=== PATIENT | male | born 1945 | race Caucasian/White ===

== ENCOUNTER 2021-08-19 10:59 | Inpatient (IN) | payer MEDICARE, MEDICAID ==
[~2021-08-19] VITALS: Ht 165.1 cm; Wt 64.9 kg
[~2021-08-19 10:59] MED LIST: LISI20TA31 PO; METF-415 PO
[2021-08-19] MEDS ORDERED: DILTIAZEM HCL 5MG/ML 5ML VIAL IV ONE (13:45)
[2021-08-19] MEDS ORDERED: DILTIAZEM HCL 5MG/ML 10ML VIAL IV NR (14:15)
[2021-08-19] MEDS ORDERED: DILTIAZEM HCL 5MG/ML 25ML VIAL IV NR (14:15)
[2021-08-19 14:19] LABS: BASOPHILS % 0.9 % (0.0-2.0); EOSINOPHILS % 0.2 % (0.0-5.0); HEMATOCRIT. 42.9 % (42.0-52.0); HEMOGLOBIN. 14.5 g/dL (14.0-18.0); LYMPHOCYTES % 11.7 % (20.0-50.0); MEAN CORPUSCULAR VOLUME 94.3 fL (80.0-94.0); MEAN PLATELET VOLUME 10.6 fl (7.4-10.4); MONOCYTES % 8.3 % (2.0-8.0); NEUTROPHILS % 78.9 % (40.0-76.0); PLATELET 164 x1000/uL (130-400); RED BLOOD CELL COUNT 4.54 mill/uL (4.7-6.1)
[2021-08-19 14:27] LABS: CHLORIDE 110 mEq/L (98-107)
[2021-08-19] MEDS ORDERED: AMIODARONE HCL 150 MG in DEXT 5% WATER 100 ML IV NR (14:30)
[2021-08-19] MEDS ORDERED: AMIODARONE HCL 900 MG in DEXT 5% WATER 482 ML IV SCH (14:30)
[2021-08-19] MEDS ORDERED: DOCUSATE SODIUM 100MG CAPSULE PO PRN (15:15)
[2021-08-19] MEDS ORDERED: MAGNESIUM/ALUMINUM HYDROXIDE/SIMETHICONE 30ML UDC PO PRN (15:15)
[2021-08-19] MEDS ORDERED: GUAIFENESIN 200MG/10ML SUGAR FREE UDC PO PRN (15:15)
[2021-08-19] MEDS ORDERED: MORPHINE SULFATE 2 MG/ML CPJ (NOT FOR IM USE) IV PRN (15:15)
[2021-08-19] MEDS ORDERED: ONDANSETRON HCL 4MG/2ML INJ IV PRN (15:15)
[2021-08-19] MEDS ORDERED: HYDROCODONE/ACETAMINOPHEN 5/325MG TABLET PO PRN (15:15)
[2021-08-19] MEDS ORDERED: ACETAMINOPHEN 325MG TABLET PO PRN (15:15)
[2021-08-19] MEDS ORDERED: NALOXONE HCL 0.4MG/ML VIAL IV PRN (15:30)
[2021-08-19 15:49] LABS: PROTHROMBIN TIME 42.9 sec (9.6-11.0)
[2021-08-19 15:51] LABS: INR 4.5
[2021-08-19] MEDS: AMIODARONE HCL 900 MG in DEXT 5% WATER 482 ML IV SCH (15:59)
[2021-08-19 20:08] VITALS: BP_SYST 125; BP_SYST 144; BP_DIAS 83; BP_DIAS 94
[2021-08-19] MEDS ORDERED: DEXTROSE 50% WATER 50ML SYRINGE IV PRN (21:15)
[2021-08-19] MEDS: BLOOD SUGAR DIAGNOSTIC STRIP TEST SCH (21:38)
[2021-08-19 21:46] VITALS: BP 152/95
[2021-08-19] MEDS: CARVEDILOL 3.125 MG TABLET PO SCH (21:53)
[2021-08-19] MEDS ORDERED: LORAZEPAM 2MG/ML CPJ IV PRN (22:15)
[2021-08-19] MEDS: INSULIN LISPRO 100 UNITS/ML SUBCUT SCH (22:21)
[2021-08-20] VITALS (13 sets, daily range): BP systolic 101–137; BP diastolic 30–92
[2021-08-20 06:10] LABS: HEMATOCRIT. 43.8 % (42.0-52.0); HEMOGLOBIN. 14.7 g/dL (14.0-18.0); MEAN CORPUSCULAR HEMOGLOBIN 31.9 pg (28.0-32.0); MEAN CORPUSCULAR VOLUME 95.3 fL (80.0-94.0); MEAN PLATELET VOLUME 10.3 fl (7.4-10.4); PLATELET 180 x1000/uL (130-400); RED BLOOD CELL COUNT 4.59 mill/uL (4.7-6.1)
[2021-08-20] MEDS: BLOOD SUGAR DIAGNOSTIC STRIP TEST SCH ×4 (06:20→21:08)
[2021-08-20 06:43] LABS: PARTIAL THROMBOPLASTIN TIME 48.3 sec (23.4-31.0); PROTHROMBIN TIME 51.9 sec (9.6-11.0)
[2021-08-20 07:35] LABS: INR 5.5
[2021-08-20] MEDS: INSULIN LISPRO 100 UNITS/ML SUBCUT SCH ×4 (07:55→21:08)
[2021-08-20] MEDS ORDERED: ASPI-1497 PO (08:04)
[2021-08-20] MEDS ORDERED: ATOR20TA65 PO (08:06)
[2021-08-20] MEDS ORDERED: CARV6.2548 PO (08:08)
[2021-08-20] MEDS ORDERED: FERR325T6 PO (08:09)
[2021-08-20] MEDS ORDERED: WARF3TAB58 PO (08:10)
[2021-08-20] MEDS ORDERED: WARF4TAB71 PO (08:11)
[2021-08-20] MEDS: CARVEDILOL 3.125 MG TABLET PO SCH ×2 (08:42→21:00)
[2021-08-20] MEDS ORDERED: TETRACAINE/BENZOCAINE/BUTAMBEN 20 GM SPRAY MM ONE (14:34)
[2021-08-20] MEDS ORDERED: FENTANYL CITRATE/PF 50MCG/ML 2ML VIAL ONE (14:35)
[2021-08-20] MEDS ORDERED: MIDAZOLAM HCL 2 MG/2 ML VIAL ONE ×2 (14:35→15:02)
[2021-08-20] MEDS ORDERED: LIDOCAINE HCL 2% JELLY 5ML ONE (15:04)
[2021-08-20] MEDS ORDERED: ATROPINE SULFATE 1MG/10ML SYR IV PRN (15:30)
[2021-08-20] MEDS ORDERED: ONDANSETRON HCL 4MG/2ML INJ IV PRN (15:30)
[2021-08-20] MEDS ORDERED: ACETAMINOPHEN 325MG TABLET PO PRN (15:30)
[2021-08-20] MEDS: AMIODARONE HCL 900 MG in DEXT 5% WATER 482 ML IV SCH (16:38)
[2021-08-21] VITALS (7 sets, daily range): BP systolic 110–127; BP diastolic 70–91
[2021-08-21 05:33] LABS: BASOPHILS % 0.7 % (0.0-2.0); EOSINOPHILS % 0.2 % (0.0-5.0); HEMATOCRIT. 42.3 % (42.0-52.0); HEMOGLOBIN. 14.1 g/dL (14.0-18.0); LYMPHOCYTES % 13.7 % (20.0-50.0); MEAN CORPUSCULAR HEMOGLOBIN 31.9 pg (28.0-32.0); MEAN CORPUSCULAR VOLUME 95.5 fL (80.0-94.0); MEAN PLATELET VOLUME 10.2 fl (7.4-10.4); MONOCYTES % 10.6 % (2.0-8.0); NEUTROPHILS % 74.8 % (40.0-76.0); PLATELET 158 x1000/uL (130-400); RED BLOOD CELL COUNT 4.43 mill/uL (4.7-6.1); RED CELL DISTRIBUTION WIDTH 14.7 % (11.6-14.6)
[2021-08-21] MEDS: BLOOD SUGAR DIAGNOSTIC STRIP TEST SCH (06:54)
[2021-08-21 07:47] LABS: PROTHROMBIN TIME 43.3 sec (9.6-11.0)
[2021-08-21 07:49] LABS: INR 4.5
[2021-08-21] MEDS: CARVEDILOL 3.125 MG TABLET PO SCH (08:48)
[2021-08-21] MEDS: INSULIN LISPRO 100 UNITS/ML SUBCUT SCH (08:48)
[2021-08-21] MEDS ORDERED: AMIODARONE HCL 200 MG TABLET PO SCH (09:00)
[2021-08-21 12:01] LABS: PLATELET ESTIMATE NORMAL
== END 2021-08-21 11:00 | disposition home or self-care (01) | DRG 309 ==
LOC: ER 10:59 → 3WST 15:00 → EDBEDREQ 15:36 → EDBEDREQSVC 15:39 → ENRESERV 19:23 → 3WST 08-20 01:23 → 5EST 08-20 13:15
PROVIDERS: ADMIT Hospitalist; ATTEND Hospitalist
PROC: 5A2204Z Restoration of Cardiac Rhythm, Single (ICD-10-PCS; principal; 2021-08-20)
DX: I48.91 Unspecified atrial fibrillation (principal); D68.59 Other primary thrombophilia; I48.92 Unspecified atrial flutter; E11.9 Type 2 diabetes mellitus without complications; I25.10 Atherosclerotic heart disease of native coronary artery without angina pectoris; I44.7 Left bundle-branch block, unspecified; Z20.822 Contact with and (suspected) exposure to COVID-19; E78.5 Hyperlipidemia, unspecified; I11.9 Hypertensive heart disease without heart failure; Z79.01 Long term (current) use of anticoagulants; Z79.899 Other long term (current) drug therapy; Z95.2 Presence of prosthetic heart valve; Z79.82 Long term (current) use of aspirin; Z79.84 Long term (current) use of oral hypoglycemic drugs; I25.2 Old myocardial infarction
CPT/HCPCS: 36415; 71045; 80048; 80053; 82962; 83605; 83735; 83880; 84443; 84484; 85025; 87426; 92960; 93005; 93306; 93970; 99285; C9803; J0282; J1815; J2060; J2250; J3010; J3490; J7060

== ENCOUNTER 2021-08-28 11:49 | Inpatient (IN) | payer MEDICARE, MEDICAID ==
[2021-08-28] VITALS (27 sets, daily range): BP systolic 100–158; BP diastolic 54–98
[~2021-08-28] VITALS: Ht 172.7 cm; Wt 60.8 kg
[~2021-08-28 11:49] MED LIST changes: +ASPI-1497 PO; +ATOR20TA65 PO; +CARV6.2548 PO; +FERR325T6 PO
[2021-08-28] MEDS ORDERED: NICARDIPINE 100MCG/ML 10ML VIAL (CATH LAB) IV ONE (12:00)
[2021-08-28] MEDS ORDERED: NITROGLYCERIN 50MCG/ML 10ML VIAL (CATH LAB) IV ONE (12:00)
[2021-08-28] MEDS ORDERED: IODIXANOL 320MG/ML 100 ML BOTTLE IV ONE (12:44)
[2021-08-28] MEDS ORDERED: FENTANYL CITRATE/PF 50MCG/ML 2ML VIAL ONE (12:45)
[2021-08-28] MEDS ORDERED: HEPARIN 1000 UNITS/ML 10ML ONE (12:45)
[2021-08-28] MEDS ORDERED: MIDAZOLAM HCL 2 MG/2 ML VIAL ONE (12:45)
[2021-08-28] MEDS ORDERED: LIDOCAINE HCL 1% 10 MG/ML 10ML VIAL ONE ×2 (12:45→13:02)
[2021-08-28] MEDS ORDERED: ISOS30TA91 PO (13:02)
[2021-08-28] MEDS ORDERED: AMI2 PO (13:02)
[2021-08-28] MEDS ORDERED: LIDOCAINE HCL/PF 1% 10 MG/ML 5ML VIAL ONE (14:58)
[2021-08-28] MEDS ORDERED: FUROSEMIDE 20MG/2ML VIAL ONE (15:09)
[2021-08-28] MEDS ORDERED: FUROSEMIDE 40MG/4ML VIAL ONE ×2 (15:09→15:28)
[2021-08-28] MEDS ORDERED: MORPHINE SULFATE 2 MG/ML CPJ (NOT FOR IM USE) IV ONE ×2 (15:13→15:36)
[2021-08-28] MEDS ORDERED: HYDRALAZINE 20MG/ML VIAL ONE (15:19)
[2021-08-28] MEDS ORDERED: NITROGLYCERIN 50MG PREMIX 250 ML IV SCH (15:30)
[2021-08-28 19:42] LABS: INR 1.1; PROTHROMBIN TIME 12.1 sec (9.6-11.0)
[2021-08-28] MEDS: IPRATROPIUM/ALBUTEROL 0.5-3(2.5)MG/3ML NEB HHN SCH (20:01)
[2021-08-28] MEDS ORDERED: AMIODARONE HCL 200 MG TABLET PO SCH (21:00)
[2021-08-28] MEDS ORDERED: LISINOPRIL 10MG TABLET PO SCH (21:00)
[2021-08-28] MEDS: HYDRALAZINE HCL 25MG TABLET PO SCH (21:13)
[2021-08-28] MEDS: FUROSEMIDE 40MG/4ML VIAL IVP SCH (21:13)
[2021-08-28] MEDS: ATORVASTATIN CALCIUM 20MG TABLET PO SCH (21:13)
[2021-08-28] MEDS ORDERED: FUROSEMIDE 40MG/4ML VIAL IVP SCH (22:00)
[2021-08-28] MEDS ORDERED: HYDRALAZINE 20MG/ML VIAL IV SCH ×2 (23:00)
[2021-08-29] VITALS (30 sets, daily range): BP systolic 92–130; BP diastolic 48–70
[2021-08-29] MEDS: IPRATROPIUM/ALBUTEROL 0.5-3(2.5)MG/3ML NEB HHN SCH ×6 (00:09→20:11)
[2021-08-29 05:37] LABS: BASOPHILS % 0.4 % (0.0-2.0); HEMATOCRIT. 44.2 % (42.0-52.0); HEMOGLOBIN. 14.7 g/dL (14.0-18.0); LYMPHOCYTES % 8.5 % (20.0-50.0); MEAN CORPUSCULAR HEMOGLOBIN 31.9 pg (28.0-32.0); MEAN CORPUSCULAR VOLUME 96.1 fL (80.0-94.0); MEAN PLATELET VOLUME 9.8 fl (7.4-10.4); MONOCYTES % 10.1 % (2.0-8.0); PLATELET 170 x1000/uL (130-400); RED CELL DISTRIBUTION WIDTH 15.9 % (11.6-14.6)
[2021-08-29] MEDS: HYDRALAZINE HCL 25MG TABLET PO SCH ×3 (06:13→22:40)
[2021-08-29] MEDS: ENOXAPARIN 60MG/0.6ML SYR SUBCUT SCH ×3 (06:14→21:20)
[2021-08-29 08:06] LABS: BG BASE EXCESS 0.1 mmol/L (-2.0-2.0); BG CARBOXYHEMOGLOBIN 0.8 % (0.5-1.5); BG DEOXYHEMOGLOBIN 3.8 % (0.0-5.0); BG FRACTION INSPIRED OXYGEN 40; BG HCO3 ACT 22.7 mmol/L (22.0-26.0); BG METHEMOGLOBIN 0.2 % (0.0-1.5); BG OXYGEN SATURATION 96.2 % (92.0-98.5); BG OXYHEMOGLOBIN 95.2 % (94.0-97.0); BG PCO2 31.6 mmHg (35.0-45.0); BG PH 7.475 (7.350-7.450); BG PO2 79.5 mmHg (75.0-100.0); BG SAMPLE SITE RIGHT BRACHIAL; BG TOTAL HEMOGLOBIN 15.5 g/dL (12.0-18.0); BG VENT MODE NASAL CANNULA
[2021-08-29] MEDS: AMIODARONE HCL 200 MG TABLET PO SCH ×2 (10:04→21:19)
[2021-08-29] MEDS: FUROSEMIDE 40MG/4ML VIAL IVP SCH ×2 (10:04→21:19)
[2021-08-29] MEDS: LISINOPRIL 10MG TABLET PO SCH (10:05)
[2021-08-29] MEDS ORDERED: DEXTROSE 50% WATER 50ML SYRINGE IV PRN (11:00)
[2021-08-29] MEDS: BLOOD SUGAR DIAGNOSTIC STRIP TEST SCH ×3 (12:43→21:20)
[2021-08-29] MEDS: INSULIN LISPRO 100 UNITS/ML SUBCUT SCH ×3 (13:07→21:00)
[2021-08-29] MEDS: ATORVASTATIN CALCIUM 20MG TABLET PO SCH (21:19)
[2021-08-30] VITALS (12 sets, daily range): BP systolic 102–119; BP diastolic 46–70
[2021-08-30] MEDS: IPRATROPIUM/ALBUTEROL 0.5-3(2.5)MG/3ML NEB HHN SCH ×6 (04:00→20:36)
[2021-08-30] MEDS: HYDRALAZINE HCL 25MG TABLET PO SCH ×3 (05:09→22:20)
[2021-08-30 07:07] LABS: BASOPHILS % 0.9 % (0.0-2.0); EOSINOPHILS % 0.8 % (0.0-5.0); HEMATOCRIT. 44.4 % (42.0-52.0); HEMOGLOBIN. 14.8 g/dL (14.0-18.0); LYMPHOCYTES % 13.9 % (20.0-50.0); MEAN CORPUSCULAR HEMOGLOBIN 32.1 pg (28.0-32.0); MEAN CORPUSCULAR VOLUME 96.6 fL (80.0-94.0); MEAN PLATELET VOLUME 10.1 fl (7.4-10.4); NEUTROPHILS % 72.4 % (40.0-76.0); PLATELET 164 x1000/uL (130-400); RED CELL DISTRIBUTION WIDTH 16.5 % (11.6-14.6)
[2021-08-30] MEDS: BLOOD SUGAR DIAGNOSTIC STRIP TEST SCH ×4 (07:30→20:49)
[2021-08-30] MEDS: INSULIN LISPRO 100 UNITS/ML SUBCUT SCH ×4 (08:00→20:50)
[2021-08-30] MEDS: FUROSEMIDE 40MG/4ML VIAL IVP SCH (09:20)
[2021-08-30] MEDS: AMIODARONE HCL 200 MG TABLET PO SCH ×2 (09:21→20:38)
[2021-08-30] MEDS: LISINOPRIL 10MG TABLET PO SCH (09:21)
[2021-08-30] MEDS: ENOXAPARIN 60MG/0.6ML SYR SUBCUT SCH ×2 (09:22→20:52)
[2021-08-30] MEDS: ATORVASTATIN CALCIUM 20MG TABLET PO SCH (20:37)
[2021-08-30] MEDS: FUROSEMIDE 40MG TABLET PO SCH (20:38)
[2021-08-31] VITALS (12 sets, daily range): BP systolic 101–139; BP diastolic 49–74
[2021-08-31] MEDS: IPRATROPIUM/ALBUTEROL 0.5-3(2.5)MG/3ML NEB HHN SCH ×4 (00:42→13:01)
[2021-08-31] MEDS: HYDRALAZINE HCL 25MG TABLET PO SCH ×3 (05:43→21:43)
[2021-08-31 06:38] LABS: BASOPHILS % 0.8 % (0.0-2.0); EOSINOPHILS % 2.1 % (0.0-5.0); HEMATOCRIT. 40.2 % (42.0-52.0); HEMOGLOBIN. 13.8 g/dL (14.0-18.0); LYMPHOCYTES % 17.2 % (20.0-50.0); MEAN CORPUSCULAR HEMOGLOBIN 32.3 pg (28.0-32.0); MEAN CORPUSCULAR VOLUME 94.3 fL (80.0-94.0); MONOCYTES % 14.6 % (2.0-8.0); NEUTROPHILS % 65.3 % (40.0-76.0); PLATELET 172 x1000/uL (130-400); RED BLOOD CELL COUNT 4.27 mill/uL (4.7-6.1); RED CELL DISTRIBUTION WIDTH 15.3 % (11.6-14.6)
[2021-08-31] MEDS: BLOOD SUGAR DIAGNOSTIC STRIP TEST SCH ×4 (07:30→21:00)
[2021-08-31] MEDS: INSULIN LISPRO 100 UNITS/ML SUBCUT SCH ×4 (08:00→21:37)
[2021-08-31] MEDS: ENOXAPARIN 60MG/0.6ML SYR SUBCUT SCH ×2 (09:00→21:00)
[2021-08-31] MEDS: LISINOPRIL 10MG TABLET PO SCH (09:00)
[2021-08-31] MEDS: AMIODARONE HCL 200 MG TABLET PO SCH ×2 (09:29→20:59)
[2021-08-31] MEDS: FUROSEMIDE 40MG TABLET PO SCH ×2 (09:30→20:59)
[2021-08-31] MEDS ORDERED: POTASSIUM CHLORIDE 20MEQ TABLET SR PO NR ×2 (11:30→18:00)
[2021-08-31] MEDS ORDERED: IPRATROPIUM/ALBUTEROL 0.5-3(2.5)MG/3ML NEB HHN PRN (16:30)
[2021-08-31] MEDS: ATORVASTATIN CALCIUM 20MG TABLET PO SCH (20:59)
[2021-09-01] VITALS (9 sets, daily range): BP systolic 113–134; BP diastolic 58–79
[2021-09-01] MEDS: HYDRALAZINE HCL 25MG TABLET PO SCH ×3 (06:00→21:19)
[2021-09-01] MEDS: BLOOD SUGAR DIAGNOSTIC STRIP TEST SCH ×4 (07:30→21:00)
[2021-09-01 07:36] LABS: BASOPHILS % 1.1 % (0.0-2.0); EOSINOPHILS % 4.4 % (0.0-5.0); HEMATOCRIT. 42.4 % (42.0-52.0); HEMOGLOBIN. 14.1 g/dL (14.0-18.0); LYMPHOCYTES % 14.9 % (20.0-50.0); MEAN CORPUSCULAR HEMOGLOBIN 32.1 pg (28.0-32.0); MEAN CORPUSCULAR VOLUME 96.5 fL (80.0-94.0); MEAN PLATELET VOLUME 10.1 fl (7.4-10.4); MONOCYTES % 13.7 % (2.0-8.0); NEUTROPHILS % 65.9 % (40.0-76.0); PLATELET 173 x1000/uL (130-400)
[2021-09-01] MEDS: ENOXAPARIN 60MG/0.6ML SYR SUBCUT SCH ×2 (07:48→21:19)
[2021-09-01] MEDS: INSULIN LISPRO 100 UNITS/ML SUBCUT SCH ×4 (08:00→21:20)
[2021-09-01] MEDS: AMIODARONE HCL 200 MG TABLET PO SCH ×2 (08:44→21:19)
[2021-09-01] MEDS: FUROSEMIDE 40MG TABLET PO SCH ×2 (08:44→21:24)
[2021-09-01] MEDS: LISINOPRIL 10MG TABLET PO SCH (08:46)
[2021-09-01] MEDS ORDERED: GENTAMICIN SULF 40MG/ML 2ML VIAL ONE (09:23)
[2021-09-01] MEDS ORDERED: GENTAMICIN/NS IRRIGATION 500 ML IR ONE (09:23)
[2021-09-01] MEDS ORDERED: LIDOCAINE HCL 1% 10 MG/ML 10ML VIAL ONE ×3 (09:23→12:59)
[2021-09-01] MEDS ORDERED: DOPAMINE 400MG/250ML PREMIX 250 ML IV ONE ×2 (11:49→15:14)
[2021-09-01] MEDS ORDERED: CEFAZOLIN SODIUM 1000MG/VIAL ONE (12:03)
[2021-09-01] MEDS ORDERED: DEXAMETHASONE 4MG/ML 1ML VIAL ONE (12:05)
[2021-09-01] MEDS ORDERED: GLYCOPYRROLATE 0.2 MG/ML 2ML VIAL ONE (12:05)
[2021-09-01] MEDS ORDERED: FUROSEMIDE 100MG/10ML VIAL ONE (12:46)
[2021-09-01] MEDS ORDERED: CALCIUM CHLORIDE 1GM/10ML SYR IV ONE ×2 (12:53→15:14)
[2021-09-01] MEDS ORDERED: HYDROCODONE/ACETAMINOPHEN 5/325MG TABLET PO PRN (15:00)
[2021-09-01] MEDS ORDERED: DOPAMINE 400MG/250ML PREMIX 250 ML IV PRN (15:15)
[2021-09-01] MEDS ORDERED: WARFARIN SODIUM 5MG TABLET PO NR (18:11)
[2021-09-01] MEDS ORDERED: WARFARIN SODIUM 10MG TABLET PO ONE (18:15)
[2021-09-01] MEDS: CEFAZOLIN 1000MG PREMIX 50 ML IV SCH (21:18)
[2021-09-01] MEDS: ATORVASTATIN CALCIUM 20MG TABLET PO SCH (21:20)
[2021-09-02] VITALS (12 sets, daily range): BP systolic 90–117; BP diastolic 52–72
[2021-09-02] MEDS: HYDRALAZINE HCL 25MG TABLET PO SCH ×3 (05:40→21:07)
[2021-09-02] MEDS: CEFAZOLIN 1000MG PREMIX 50 ML IV SCH (05:59)
[2021-09-02 06:30] LABS: INR 1.2; PROTHROMBIN TIME 12.4 sec (9.6-11.0)
[2021-09-02 06:41] LABS: HEMATOCRIT. 45.7 % (42.0-52.0); HEMOGLOBIN. 15.5 g/dL (14.0-18.0); MEAN CORPUSCULAR HEMOGLOBIN 32.5 pg (28.0-32.0); MEAN CORPUSCULAR VOLUME 95.5 fL (80.0-94.0); MEAN PLATELET VOLUME 10.3 fl (7.4-10.4); PLATELET 198 x1000/uL (130-400); RED BLOOD CELL COUNT 4.78 mill/uL (4.7-6.1); RED CELL DISTRIBUTION WIDTH 15.7 % (11.6-14.6)
[2021-09-02] MEDS: BLOOD SUGAR DIAGNOSTIC STRIP TEST SCH ×4 (07:55→21:07)
[2021-09-02] MEDS: INSULIN LISPRO 100 UNITS/ML SUBCUT SCH ×4 (08:02→21:07)
[2021-09-02] MEDS: LISINOPRIL 10MG TABLET PO SCH (09:00)
[2021-09-02] MEDS: FUROSEMIDE 40MG TABLET PO SCH ×2 (09:00→21:05)
[2021-09-02] MEDS: AMIODARONE HCL 200 MG TABLET PO SCH ×2 (10:43→21:05)
[2021-09-02] MEDS: ENOXAPARIN 60MG/0.6ML SYR SUBCUT SCH ×2 (10:43→21:06)
[2021-09-02] MEDS ORDERED: NALOXONE HCL 0.4MG/ML VIAL IV PRN (16:00)
[2021-09-02] MEDS ORDERED: WARFARIN SODIUM 3MG TABLET PO SCH (18:00)
[2021-09-02] MEDS: ATORVASTATIN CALCIUM 20MG TABLET PO SCH (21:05)
[2021-09-02 22:12] LABS: PLATELET ESTIMATE NORMAL
[2021-09-03] VITALS (12 sets, daily range): BP systolic 92–131; BP diastolic 53–73
[2021-09-03] MEDS: HYDRALAZINE HCL 25MG TABLET PO SCH ×3 (05:20→21:25)
[2021-09-03 06:30] LABS: BASOPHILS % 0.1 % (0.0-2.0); HEMATOCRIT. 41.9 % (42.0-52.0); HEMOGLOBIN. 14.2 g/dL (14.0-18.0); LYMPHOCYTES % 8.7 % (20.0-50.0); MEAN CORPUSCULAR VOLUME 94.4 fL (80.0-94.0); MEAN PLATELET VOLUME 10.2 fl (7.4-10.4); MONOCYTES % 7.8 % (2.0-8.0); NEUTROPHILS % 83.4 % (40.0-76.0); PLATELET 179 x1000/uL (130-400); RED BLOOD CELL COUNT 4.44 mill/uL (4.7-6.1); RED CELL DISTRIBUTION WIDTH 15.5 % (11.6-14.6)
[2021-09-03 06:43] LABS: PROTHROMBIN TIME 20.5 sec (9.6-11.0)
[2021-09-03] MEDS: INSULIN LISPRO 100 UNITS/ML SUBCUT SCH ×4 (08:00→21:28)
[2021-09-03] MEDS: BLOOD SUGAR DIAGNOSTIC STRIP TEST SCH ×4 (08:22→20:44)
[2021-09-03] MEDS: ENOXAPARIN 60MG/0.6ML SYR SUBCUT SCH (08:24)
[2021-09-03] MEDS: FUROSEMIDE 40MG TABLET PO SCH (08:24)
[2021-09-03] MEDS: AMIODARONE HCL 200 MG TABLET PO SCH ×2 (08:24→21:25)
[2021-09-03] MEDS: LISINOPRIL 10MG TABLET PO SCH (08:24)
[2021-09-03] MEDS ORDERED: INSULIN LISPRO 100 UNITS/ML SUBCUT SCH (12:00)
[2021-09-03] MEDS: SODIUM CHLORIDE 0.45% 1,000 ML IV SCH (13:54)
[2021-09-03] MEDS ORDERED: WARFARIN SODIUM 3MG TABLET PO NR (18:00)
[2021-09-03] MEDS ORDERED: WARFARIN SODIUM 2MG TABLET PO NR (18:00)
[2021-09-03] MEDS: ATORVASTATIN CALCIUM 20MG TABLET PO SCH (21:25)
[2021-09-04] VITALS (10 sets, daily range): BP systolic 98–120; BP diastolic 49–65
[2021-09-04] MEDS: HYDRALAZINE HCL 25MG TABLET PO SCH ×2 (06:00→13:56)
[2021-09-04] MEDS: BLOOD SUGAR DIAGNOSTIC STRIP TEST SCH ×3 (06:02→16:50)
[2021-09-04 06:36] LABS: BASOPHILS % 0.3 % (0.0-2.0); EOSINOPHILS % 1.5 % (0.0-5.0); HEMATOCRIT. 39.4 % (42.0-52.0); HEMOGLOBIN. 13.4 g/dL (14.0-18.0); LYMPHOCYTES % 17.9 % (20.0-50.0); MEAN CORPUSCULAR HEMOGLOBIN 31.9 pg (28.0-32.0); MEAN PLATELET VOLUME 9.7 fl (7.4-10.4); NEUTROPHILS % 69.3 % (40.0-76.0); PLATELET 150 x1000/uL (130-400); RED BLOOD CELL COUNT 4.19 mill/uL (4.7-6.1); RED CELL DISTRIBUTION WIDTH 15.1 % (11.6-14.6)
[2021-09-04 07:01] LABS: INR 2.1; PROTHROMBIN TIME 20.9 sec (9.6-11.0)
[2021-09-04] MEDS: INSULIN LISPRO 100 UNITS/ML SUBCUT SCH ×3 (07:23→17:11)
[2021-09-04] MEDS: AMIODARONE HCL 200 MG TABLET PO SCH (08:11)
[2021-09-04] MEDS: SODIUM CHLORIDE 0.45% 1,000 ML IV SCH (08:15)
[2021-09-04] MEDS ORDERED: ENOXAPARIN 60MG/0.6ML SYR SUBCUT SCH (09:00)
[2021-09-04 14:50] LABS: CLARITY URINE CLEAR (CLEAR); COLOR URINE YELLOW (YELLOW); KETONES URINE NEGATIVE (NEGATIVE); LEUKOCYTE ESTERASE URINE 1+ (NEGATIVE); NITRITE URINE NEGATIVE (NEGATIVE); OCCULT BLOOD URINE 3+ (NEGATIVE); PROTEIN URINE TRACE (NEGATIVE); SPECIFIC GRAVITY URINE 1.018 (1.005-1.030)
[2021-09-04] MEDS ORDERED: WARFARIN SODIUM 3MG TABLET PO NR (18:00)
== END 2021-09-04 19:48 | disposition home health service (06) | DRG 222 ==
LOC: CCL 11:49 → CVICU 11:50 → 5EST 08-29 12:00
PROVIDERS: ADMIT Specialist; ATTEND Specialist
PROC: 4A023N7 Measurement of Cardiac Sampling and Pressure, Left Heart, Percutaneous Approach (ICD-10-PCS; 2021-08-28)
PROC: B211YZZ Fluoroscopy of Multiple Coronary Arteries using Other Contrast (ICD-10-PCS; 2021-08-28)
PROC: 5A09357 Assistance with Respiratory Ventilation, Less than 24 Consecutive Hours, Continuous Positive Airway Pressure (ICD-10-PCS; 2021-08-28)
PROC: 0JH609Z Insertion of Cardiac Resynchronization Defibrillator Pulse Generator into Chest Subcutaneous Tissue and Fascia, Open Approach (ICD-10-PCS; principal; 2021-09-01)
PROC: 02HK3KZ Insertion of Defibrillator Lead into Right Ventricle, Percutaneous Approach (ICD-10-PCS; 2021-09-01)
PROC: 02H63KZ Insertion of Defibrillator Lead into Right Atrium, Percutaneous Approach (ICD-10-PCS; 2021-09-01)
PROC: 02HL3KZ Insertion of Defibrillator Lead into Left Ventricle, Percutaneous Approach (ICD-10-PCS; 2021-09-01)
PROC: B517YZZ Fluoroscopy of Left Subclavian Vein using Other Contrast (ICD-10-PCS; 2021-09-01)
DX: I11.0 Hypertensive heart disease with heart failure (principal); I50.23 Acute on chronic systolic (congestive) heart failure; J96.01 Acute respiratory failure with hypoxia; I48.20 Chronic atrial fibrillation, unspecified; D68.59 Other primary thrombophilia; N17.9 Acute kidney failure, unspecified; I48.92 Unspecified atrial flutter; I42.0 Dilated cardiomyopathy; Z20.822 Contact with and (suspected) exposure to COVID-19; I44.7 Left bundle-branch block, unspecified; E78.5 Hyperlipidemia, unspecified; E11.9 Type 2 diabetes mellitus without complications; C61 Malignant neoplasm of prostate; R00.1 Bradycardia, unspecified; I95.9 Hypotension, unspecified; R79.89 Other specified abnormal findings of blood chemistry; Z79.01 Long term (current) use of anticoagulants; Z95.2 Presence of prosthetic heart valve; Z79.84 Long term (current) use of oral hypoglycemic drugs; Z90.79 Acquired absence of other genital organ(s); Z79.899 Other long term (current) drug therapy
CPT/HCPCS: 33225; 33249; 36415; 36600; 71045; 75820; 80048; 81003; 82375; 82805; 82962; 83036; 83735; 83880; 85025; 87426; 93005; 93454; 93641; 94640; 94660; C1760; C1769; C1882; C1887; C1893; C1898; C1899; C1900; C9803; J0360; J0690; J1100; J1265; J1580; J1644; J1650; J1815; J1940; J2250; J2270; J3010; J3490; Q9967

== ENCOUNTER → 2021-11-21 | Outpatient (CLI) | payer MEDICARE, MEDICAID ==
[~2021-11-21] MED LIST changes: +ALD50 MT; +AMI2 PO; +COR3 PO; +ISOS30TA91 PO; +WARF-67 MT
== END | disposition home or self-care (01) ==
LOC: RAD 14:40
PROVIDERS: ATTEND Specialist
DX: Z95.810 Presence of automatic (implantable) cardiac defibrillator (principal)
CPT/HCPCS: 71046

== ENCOUNTER 2021-12-07 11:01 | Emergency (ER) | payer MEDICARE, MEDICAID ==
[~2021-12-07] VITALS: Ht 165.1 cm; Wt 61.0 kg
[~2021-12-07 11:01] MED LIST changes: -ALD50 MT; -COR3 PO; -WARF-67 MT
[2021-12-07 11:03] VITALS: BP 132/88
[2021-12-07] MEDS ORDERED: ONDANSETRON HCL 4MG/2ML INJ IV ONE (11:15)
[2021-12-07 12:03] LABS: BASOPHILS % 1.4 % (0.0-2.0); EOSINOPHILS % 3.9 % (0.0-5.0); HEMATOCRIT. 38.8 % (42.0-52.0); HEMOGLOBIN. 13.4 g/dL (14.0-18.0); LYMPHOCYTES % 10.6 % (20.0-50.0); MEAN CORPUSCULAR HEMOGLOBIN 33.4 pg (28.0-32.0); MEAN CORPUSCULAR VOLUME 96.7 fL (80.0-94.0); MEAN PLATELET VOLUME 10.4 fl (7.4-10.4); MONOCYTES % 8.6 % (2.0-8.0); NEUTROPHILS % 75.5 % (40.0-76.0); PLATELET 151 x1000/uL (130-400); RED BLOOD CELL COUNT 4.01 mill/uL (4.7-6.1); RED CELL DISTRIBUTION WIDTH 15.5 % (11.6-14.6)
[2021-12-07 12:15] LABS: CHLORIDE 105 mEq/L (98-107)
[2021-12-09] MEDS ORDERED: WARF-67 MT (07:53)
[2021-12-09] MEDS ORDERED: ALD50 MT (07:53)
[2021-12-10] MEDS ORDERED: COR3 PO ×2 (12:31→12:32)
[2021-12-10] MEDS ORDERED: CARV6.2548 PO (12:33)
== END 2021-12-07 13:38 | disposition left against medical advice (07) ==
LOC: ER 11:01
DX: R07.89 Other chest pain (principal); Z98.890 Other specified postprocedural states; Z79.899 Other long term (current) drug therapy
CPT/HCPCS: 36415; 71045; 80053; 83880; 84484; 85025; 93005; 99285

== ENCOUNTER 2023-02-28 03:54 | Emergency (ER) | payer MEDICARE, MEDICAID ==
[~2023-02-28] VITALS: Ht 175.3 cm; Wt 64.0 kg
[~2023-02-28 03:54] MED LIST changes: +ATOR20TA PO; -ATOR20TA65 PO; -LISI20TA31 PO; +WARF-67 MT
[2023-02-28 04:00] VITALS: PULSE 85
[2023-02-28 04:46] VITALS: BP 101/26; RESP 16; TEMP 98.1; O2SAT 97
[2023-02-28 10:36] LABS: EOSINOPHILS % 1.9 % (0.0-5.0); HEMOGLOBIN. 13.1 g/dL (14.0-18.0); LYMPHOCYTES % 19.9 % (20.0-50.0); MEAN CORPUSCULAR HEMOGLOBIN 29.8 pg (28.0-32.0); MEAN CORPUSCULAR HGB CONC 31.9 g/dL (31.0-37.0); MEAN CORPUSCULAR VOLUME 93.6 fL (80.0-94.0); MEAN PLATELET VOLUME 9.4 fl (7.4-10.4); MONOCYTES % 13.6 % (2.0-8.0); NEUTROPHILS % 63.6 % (40.0-76.0); PLATELET 133 x1000/uL (130-400); RED BLOOD CELL COUNT 4.38 mill/uL (4.7-6.1); RED CELL DISTRIBUTION WIDTH 15.9 % (11.6-14.6)
[2023-02-28 12:01] LABS: ALANINE AMINOTRANSFERASE 39 IU/L (10-49); ALBUMIN 4.2 g/dL (3.2-4.8); ASPARTATE AMINOTRANSFERASE 72 IU/L (<34); BILIRUBIN TOTAL 1.1 mg/dL (0.1-1.0); CARBON DIOXIDE 22 mEq/L (21-32); CHLORIDE 107 mEq/L (98-107); CREATININE 1.5 mg/dL (0.6-1.3); GLUCOSE 81 mg/dL (70-105); POTASSIUM 4.3 mEq/L (3.5-5.1); PROTEIN TOTAL 8.2 g/dL (6.0-8.3); SODIUM 138 mEq/L (136-145); TROPONIN I HIGH SENSITIVITY 48 ng/L (3.0-53); UREA NITROGEN BLOOD 24 mg/dL (9-23)
[2023-02-28 14:26] LABS: CLARITY URINE CLEAR (CLEAR); COLOR URINE YELLOW (YELLOW); GLUCOSE URINE NEGATIVE (NEGATIVE); KETONES URINE NEGATIVE (NEGATIVE); LEUKOCYTE ESTERASE URINE NEGATIVE (NEGATIVE); NITRITE URINE NEGATIVE (NEGATIVE); OCCULT BLOOD URINE NEGATIVE (NEGATIVE); PROTEIN URINE TRACE (NEGATIVE); SPECIFIC GRAVITY URINE 1.013 (1.005-1.030)
[2023-02-28 14:37] LABS: SQUAMOUS EPITHELIAL CELL URINE RARE /lpf (RARE/1+)
[2023-02-28 14:38] LABS: BACTERIA URINE TRACE; WBC URINE 0-2 /hpf (0-2)
[2023-02-28 14:39] LABS: RBC URINE 0-2 /hpf (0-2)
== END 2023-02-28 16:32 | disposition left against medical advice (07) ==
LOC: ER 04:59
DX: R53.1 Weakness (principal); R42 Dizziness and giddiness; I10 Essential (primary) hypertension; J06.9 Acute upper respiratory infection, unspecified; I48.91 Unspecified atrial fibrillation; E11.9 Type 2 diabetes mellitus without complications; E78.00 Pure hypercholesterolemia, unspecified; Z95.0 Presence of cardiac pacemaker; Z79.899 Other long term (current) drug therapy; Z20.822 Contact with and (suspected) exposure to COVID-19
CPT/HCPCS: 99285; 70450; 71045; 87426; 80053; 81003; 85025; 84484; 87804 ×2; 36415; 93005; C9803

== ENCOUNTER 2023-05-19 18:57 | Emergency (ER) | payer MEDICARE, MEDICAID ==
[~2023-05-19] VITALS: Ht 167.6 cm; Wt 72.0 kg
[2023-05-19 19:04] VITALS: BP 176/85; PULSE 94; RESP 20; TEMP 98.4; O2SAT 99
[2023-05-19] MEDS ORDERED: ACETAMINOPHEN WITH CODEINE 300/30MG TABLET PO STA (19:15)
[2023-05-19 19:29] LABS: BASOPHILS % 1.9 % (0.0-2.0); EOSINOPHILS % 3.9 % (0.0-5.0); HEMATOCRIT. 36.7 % (42.0-52.0); HEMOGLOBIN. 12.1 g/dL (14.0-18.0); MEAN CORPUSCULAR HEMOGLOBIN 29.8 pg (28.0-32.0); MEAN CORPUSCULAR HGB CONC 33.1 g/dL (31.0-37.0); MEAN CORPUSCULAR VOLUME 90.2 fL (80.0-94.0); MONOCYTES % 12.8 % (2.0-8.0); NEUTROPHILS % 61.4 % (40.0-76.0); PLATELET 174 x1000/uL (130-400); RED BLOOD CELL COUNT 4.07 mill/uL (4.7-6.1); RED CELL DISTRIBUTION WIDTH 16.4 % (11.6-14.6); WHITE BLOOD COUNT 9.8 x1000/uL (4.5-11.0)
[2023-05-19 19:39] LABS: INR 1.8
[2023-05-19 19:44] LABS: ALANINE AMINOTRANSFERASE 23 IU/L (10-49); ALBUMIN 4.6 g/dL (3.2-4.8); ASPARTATE AMINOTRANSFERASE 31 IU/L (<34); CALCIUM 8.8 mg/dL (8.7-10.4); CARBON DIOXIDE 25 mEq/L (21-32); CHLORIDE 104 mEq/L (98-107); CREATININE 1.7 mg/dL (0.6-1.3); GLUCOSE 102 mg/dL (70-105); POTASSIUM 4.4 mEq/L (3.5-5.1); PROTEIN TOTAL 8.3 g/dL (6.0-8.3); SODIUM 136 mEq/L (136-145); TROPONIN I HIGH SENSITIVITY 26 ng/L (3.0-53); UREA NITROGEN BLOOD 27 mg/dL (9-23)
[2023-05-19 21:42] LABS: TROPONIN I HIGH SENSITIVITY 28 ng/L (3.0-53)
== END 2023-05-20 00:42 | disposition home or self-care (01) ==
LOC: ER 18:57
DX: D18.1 Lymphangioma, any site (principal); R51.9 Headache, unspecified; E11.9 Type 2 diabetes mellitus without complications; E78.00 Pure hypercholesterolemia, unspecified; I50.9 Heart failure, unspecified; Z86.73 Personal history of transient ischemic attack (TIA), and cerebral infarction without residual deficits; Z98.890 Other specified postprocedural states
CPT/HCPCS: 36415; 80053; 82962; 84484; 85025; 93005; 99284